=== PATIENT | male | born 1935 | race Two or more races ===

== ENCOUNTER 2019-03-30 11:31 | Observation (INO) | payer OTHER ==
--- NOTE | 2019-03-30 13:44 | PDOC ---
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 Hodge. Pt reports having a right calf ulcer progressively worsening over the last 1 year with associated pitting edema in the leg. Pt recently given Augmentin for wound, finished course 1 week ago and shows improvement (no longer draining pus). Pt denies associated symptoms including F/C/N/V, CP, SOB, abdominal pain, changes in bowel or bladder habits Past History - Past Medical History Allergies/Adverse Reactions: Allergies Allergy/AdvReac Type Severity Reaction Status Date / Time No Known Allergies Allergy Verified 03/30/19 12:17 Cancer: Yes (large cell lymphoma) COPD: No (smoking since he was 11yo.) - Psycho Social/Smoking Cessation Hx Smoking History: Current every day smoker Number of Cigarettes Smoked Daily: 1 Information on smoking cessation initiated: No Hx Alcohol Use: No Drug/Substance Use Hx: No Review of Systems - Review of Systems Constitutional: Yes: See HPI HEENTM: Yes: See HPI Respiratory: Yes: See HPI Cardiac (ROS): Yes: See HPI ABD/GI: Yes: See HPI : Yes: See HPI Musculoskeletal: Yes: See HPI Integumentary: Yes: See HPI Neurological: Yes: See HPI *Physical Exam - Vital Signs Last Vital Signs Temp Pulse Resp BP Pulse Ox 97.8 F 56 L 16 133/69 100 03/30/19 11:40 03/30/19 11:40 03/30/19 11:40 03/30/19 11:40 03/30/19 11:40 - Physical Exam General Appearance: Yes: Nourished, Appropriately Dressed. No: Apparent Distress HEENT: positive: EOMI Neck: positive: Supple. negative: Carotid bruit Respiratory/Chest: positive: Lungs Clear, Normal Breath Sounds. negative: Respiratory Distress Cardiovascular: positive: Regular Rhythm, Regular Rate, S1, S2. negative: Edema , JVD, Murmur Vascular Pulses: Dorsalis-Pedis (R): 4+, Doralis-Pedis (L): 4+ Gastrointestinal/Abdominal: positive: Flat, Soft. 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 Hodge. Pt reports having a right calf ulcer progressively worsening over the last 1 year with associated pitting edema in the leg. Pt recently given Augmentin for wound, finished course 1 week ago and shows improvement (no longer draining pus). Pt denies associated symptoms including F/C/N/V, CP, SOB, abdominal pain, changes in bowel or bladder habits Vitals WNL EKG sinus caity without signs of acute ischemia Trop of 0.18. Pt denies CP. Discussed case with Dr. Hodge, states pt will be admitted, will be cleared for Surgery by Cardiology and likely have the Port placed on Tuesday pt admitted to hospitalist Discharge - Discharge Information Problems reviewed: Yes Clinical Impression/Diagnosis: Admission for fitting of Port-A-Cath - Admission Yes - Follow up/Referral - Patient Discharge Instructions - Post Discharge Activity
--- NOTE | 2019-03-30 14:19 | PDOC ---
Documentation entered by Najma Aparicio SCRIBE, acting as scribe for Brock Keane MD. Brock Keane MD: This documentation has been prepared by the Markus hernandez Nirvannie, SCRIBE, under my direction and personally reviewed by me in its entirety. I confirm that the documentation accurately reflects all work, treatment, procedures, and medical decision making performed by me. Attending Attestation - Resident Resident Name: Azam Rios - ED Attending Attestation I have performed the following: I have examined & evaluated the patient, The case was reviewed & discussed with the resident, I agree w/resident's findings & plan, Exceptions are as noted - HPI HPI: 03/30/19 13:56 83y M with no known pmhx (no med fu) presents with a non healing ulcer, consistent with anaplastic large cell lymphoma - sent here by vascular for placement of chemo port. Patient denies any complaints including any pain, fevers, nausea, vomiting, chest pain, palpitations, lightheadedness. - Physicial Exam PE: 03/30/19 14:16 exam: general: no acute distress RLE: large mass on posterior LE of R leg inferior to calf without foul smelling discharge, not warm to ttouch, not erythemadous, Nontender to palpation, nonfluctuant. No signs of streaking or induration. - Medical Decision Making 03/30/19 14:19 will obtain preop labs NPO since 10pm will discuss with dr. coppola Heart Score/ECG Review - ECG Impressions Comment:: 03/30/19 18:04 Twelve-lead EKG was performed and reviewed by me. There is normal sinus rhythm with a Rate of 57 First-degree AV block Left anterior fascicular block No ST changes suggestive of acute ischemia
[2019-03-30 15:11] LABS: BASO % 0.6 % (0-2.0); EOS % 2.4 % (0-4.5); HEMATOCRIT 39.6 % (35.4-49); HEMOGLOBIN 13.1 GM/dL (11.7-16.9); LYMPH % 25.7 % (8-40); MCH 29.2 pg (25.7-33.7); MEAN CELL VOLUME 88.7 fl (80-96); MEAN PLT VOLUME 9.7 fl (7.5-11.1); NEUT % 59.3 % (42.8-82.8); PLATELET COUNT 267 K/MM3 (134-434); RBC 4.47 M/mm3 (4.00-5.60); RDW 14.5 % (11.9-15.9)
[2019-03-30 15:26] LABS: INR 1.05 (0.83-1.09); PROTHROMBIN TIME (PATIENT) 12.4 SEC (9.7-13.0)
[2019-03-30 15:45] LABS: ALBUMIN 3.2 g/dl (3.4-5.0); BILIRUBIN,TOTAL 0.4 mg/dL (0.2-1); BLOOD UREA NITROGEN 19.8 mg/dL (7-18); CALCIUM 9.5 mg/dL (8.5-10.1); CREATININE 0.7 mg/dL (0.55-1.3); POTASSIUM 4.7 mmol/L (3.5-5.1); TOT PROT 7.3 g/dl (6.4-8.2)
--- NOTE | 2019-03-30 17:45 | HP ---
CHIEF COMPLAINT: Port Placement, sent in by Dr. Hodge PCP: Pt. denies, per chart review Dr. Marta Hurst HISTORY OF PRESENT ILLNESS: Pt. is an 83 y.o. Tajik-Speaking M w/o PMHx. diam[place] presents for port placement to start chemotherapy. Pt. follows Dr. Narda Landry in the [place] as his oncologist. Pt. states he last saw a Physician 60 years ago prior to December when he had the biopsy of the RLE. Pt. completed a 5 day course of Augmentin for the wound. Per son at bedside Pt.'s wound expanded from 7-10 months ago when it was less than 1 cm. Pt. endorses some decreased PO intake over the last few weeks, hard stool (last BM yesterday) , some generealized weakness and intermittent numbness/tingling in the RLE, though not currently. Pt. states he was worked up by his PCP and Oncologist including vascualr flow to the RLE and it was negative for any problems. Pt. had PET scan of body which was only positive for R. groin lymphadenopathy and small b/l lymphadenoapthy. Pt. endorses 10lb. weight loss over the last 4 months but increased 4lbs recently. Pt. denies any chest pain, shortness of breath, abdominal pain, diarrhea, blood in the stool or urine, dysuria or nausea and vomiting. ER course was notable for: (1)CBC, CMP, Trop (2) (3) Recent Travel: No PAST MEDICAL HISTORY: RLE Anaplasti large cell lymphoma PAST SURGICAL HISTORY: Denies Social History: Smoking: Smoking since 13 years old, varying amounts peaked at 1PPD, now at 1 cigarette per day. Alcohol: Former heavy drinker, now abstains Drugs: Denies Allergies No Known Allergies Allergy (Verified 03/30/19 12:17) HOME MEDICATIONS: REVIEW OF SYSTEMS As above PHYSICAL EXAMINATION Vital Signs - 24 hr 03/30/19 11:40 Temperature 97.8 F Pulse Rate 56 L Respiratory 16 Rate Blood Pressure 133/69 O2 Sat by Pulse 100 Oximetry (%) GENERAL: Awake, alert, and fully oriented, in no acute distress. HEAD: Normal with no signs of trauma. EYES: Pupils equal, round and reactive to light, extraocular movements intact, sclera anicteric, conjunctiva clear. EARS, NOSE, THROAT: Ears normal, nares patent, oropharynx clear without exudates. Dry mucous membranes. NECK: Normal range of motion, supple without lymphadenopathy, JVD, or masses. LUNGS: Breath sounds equal, clear to auscultation bilaterally. No wheezes, and no crackles. No accessory muscle use. HEART: Regular rate and rhythm, normal S1 and S2 without murmur ABDOMEN: Soft, nontender, not distended, normoactive bowel sounds, no guarding, no rebound, no masses. No hepatomegaly or splenomegaly. MUSCULOSKELETAL: Normal range of motion at all joints. No bony deformities or tenderness. No CVA tenderness. UPPER EXTREMITIES: 2+ radial pulses, warm, well-perfused. No cyanosis. No clubbing. No peripheral edema. LOWER EXTREMITIES: 2+ dorsal pedal pulses, warm, well-perfused. No calf tenderness. No peripheral edema. R. fungating, malodorous 4cm x 6cm mass, mildly tender to direct palpation, dry, no overt purulence expressed. NEUROLOGICAL: Normal speech. Normal gait. No focal deficits PSYCHIATRIC: Cooperative. Good eye contact. Appropriate mood and affect. SKIN: Warm, dry Laboratory Results - last 24 hr 03/30/19 03/30/19 03/30/19 14:40 14:40 14:40 WBC 9.0 RBC 4.47 Hgb 13.1 Hct 39.6 MCV 88.7 MCH 29.2 MCHC 33.0 RDW 14.5 Plt Count 267 MPV 9.7 Absolute Neuts (auto) 5.4 Neutrophils % 59.3 Lymphocytes % 25.7 Monocytes % 12.0 H Eosinophils % 2.4 Basophils % 0.6 Nucleated RBC % 0 PT with INR 12.40 INR 1.05 Sodium 137 Potassium 4.7 Chloride 106 Carbon Dioxide 27 Anion Gap 5 L BUN 19.8 H Creatinine 0.7 Est GFR (CKD-EPI)AfAm 101.15 Est GFR (CKD-EPI)NonAf 87.27 Random Glucose 84 Calcium 9.5 Total Bilirubin 0.4 AST 44 H ALT 27 Alkaline Phosphatase 60 Creatine Kinase 302 Creatine Kinase Index 4.9 CK-MB (CK-2) 15.0 H Troponin I 0.18 H Total Protein 7.3 Albumin 3.2 L Blood Type Antibody Screen 03/30/19 14:40 WBC RBC Hgb Hct MCV MCH MCHC RDW Plt Count MPV Absolute Neuts (auto) Neutrophils % Lymphocytes % Monocytes % Eosinophils % Basophils % Nucleated RBC % PT with INR INR Sodium Potassium Chloride Carbon Dioxide Anion Gap BUN Creatinine Est GFR (CKD-EPI)AfAm Est GFR (CKD-EPI)NonAf Random Glucose Calcium Total Bilirubin AST ALT Alkaline Phosphatase Creatine Kinase Creatine Kinase Index CK-MB (CK-2) Troponin I Total Protein Albumin Blood Type O POSITIVE Antibody Screen Negative ASSESSMENT/PLAN: Pt. is an 83 y.o. M w/o PMHx. whjo presents for port placement to start chemotherapy. Found to have elevated Troponins. #R/o ACS Asymptomatic Trop 0.18 EKG shows 1st degree AV block, bradycardia to 57 f/u Echo, rpt. Trop and EKG #Anaplastic Large Cell Lymphoma F/u Dr. Hodge for Port placement #FEN NS @ 100 for 2 bags moinitor electrolytes and replete as needed Regular diet Visit type - Emergency Visit Emergency Visit: Yes ED Registration Date: 03/30/19 Care time: The patient presented to the Emergency Department on the above date and was hospitalized for further evaluation of their emergent condition. - New Patient This patient is new to me today: Yes Date on this admission: 03/30/19 - Critical Care Critical Care patient: No ATTENDING PHYSICIAN STATEMENT I saw and evaluated the patient. I reviewed the resident's note and discussed the case with the resident. I agree with the resident's findings and plan as documented. SUBJECTIVE: OBJECTIVE: ASSESSMENT AND PLAN:
--- NOTE | 2019-03-30 18:18 | PN ---
Teaching Attending Note Name of Resident: Luke Shea ATTENDING PHYSICIAN STATEMENT I saw and evaluated the patient. I reviewed the resident's note and discussed the case with the resident. I agree with the resident's findings and plan as documented. Seen and examined; please see resident note for further historical information. I personally verified all gary historical information and exam findings. Personally interpreted all imaging and diagnostics and reviewed appropriate consults. I reviewed all labs and vital signs as per resident note and EMR as documented. I agree with the above assessment and plan unless supplemented by myself in the following. Patient denies any chest pain shortness of breath nausea vomiting abdominal pain. He denies any prior cardiac history history of echocardiogram, cardiac catheterization, stress testing, echocardiogram, etc. etc. The patient does not follow regularly with and says is been approximately 40 years since he is even had a medical encounter. No recent antibiotics or admissions. He has scab wounds on his right lower extremity that evolved into fungating masses that are scabbed over that are consistent with the diagnosis which prompted him to seek medical attention with outpatient oncology service and leading to his diagnosis. Past medical, surgical, social, family history as per resident 10 item review of systems completed and is negative aside from as discussed in the subjective data in my own/the resident documentation. VS, labs, imaging reviewed NAD, AAO, resting comfortably in bed. 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 He is asymptomatic without EKG changes. He presented for elective port placement with Dr. Hodge for his anaplastic large B-cell lymphoma
[2019-03-30] MEDS ORDERED: ENOXAPARIN NA (PORCINE) 40 MG/0.4 ML DISP.SYRIN SQ ONE (18:23)
[2019-03-30] MEDS: SODIUM CHLORIDE 1,000 ML IV SCH (18:47)
[2019-03-30] MEDS: ENOXAPARIN NA (PORCINE) 40 MG/0.4 ML DISP.SYRIN SQ SCH (18:47)
[2019-03-30 23:46] VITALS: BMI 19.8
[2019-03-31 06:34] LABS: HEMATOCRIT 34.1 % (35.4-49); HEMOGLOBIN 11.3 GM/dL (11.7-16.9); MCH 29.3 pg (25.7-33.7); MCHC 33.3 g/dl (32.0-35.9); MEAN PLT VOLUME 10.1 fl (7.5-11.1); PLATELET COUNT 237 K/MM3 (134-434); RBC 3.88 M/mm3 (4.00-5.60); RDW 14.6 % (11.9-15.9); WHITE BLOOD COUNT 6.1 K/mm3 (4.0-10.0)
[2019-03-31 06:45] LABS: INR 1.11 (0.83-1.09); PROTHROMBIN TIME (PATIENT) 13.1 SEC (9.7-13.0)
[2019-03-31 07:08] LABS: CALCIUM 8.9 mg/dL (8.5-10.1); CREATININE 0.7 mg/dL (0.55-1.3); MAGNESIUM 1.9 mg/dL (1.8-2.4); POTASSIUM 4.7 mmol/L (3.5-5.1)
--- NOTE | 2019-03-31 07:37 | PN ---
Physical Exam: SUBJECTIVE: Patient seen and examined OBJECTIVE: Vital Signs Period Temp Pulse Resp BP Sys/Foreman Pulse Ox Last 24 Hr 97.5 F-98.1 F 56-63 16-18 115-133/60-74 99-100 GENERAL: The patient is awake, alert, and fully oriented, in no acute distress. HEAD: Normal with no signs of trauma. EYES: PERRL, extraocular movements intact, sclera anicteric, conjunctiva clear. No ptosis. ENT: Ears normal, nares patent, oropharynx clear without exudates, moist mucous membranes. NECK: Trachea midline, full range of motion, supple. LUNGS: Breath sounds equal, clear to auscultation bilaterally, no wheezes, no crackles, no accessory muscle use. HEART: Regular rate and rhythm, S1, S2 without murmur, rub or gallop. ABDOMEN: Soft, nontender, nondistended, normoactive bowel sounds, no guarding, no rebound, no hepatosplenomegaly, no masses. EXTREMITIES: 2+ pulses, warm, well-perfused, no edema. NEUROLOGICAL: Cranial nerves II through XII grossly intact. Normal speech, gait not observed. PSYCH: Normal mood, normal affect. SKIN: Warm, dry, normal turgor, no rashes or lesions noted Laboratory Results - last 24 hr 03/30/19 03/30/19 03/30/19 14:40 14:40 14:40 WBC 9.0 RBC 4.47 Hgb 13.1 Hct 39.6 MCV 88.7 MCH 29.2 MCHC 33.0 RDW 14.5 Plt Count 267 MPV 9.7 Absolute Neuts (auto) 5.4 Neutrophils % 59.3 Lymphocytes % 25.7 Monocytes % 12.0 H Eosinophils % 2.4 Basophils % 0.6 Nucleated RBC % 0 PT with INR 12.40 INR 1.05 Sodium 137 Potassium 4.7 Chloride 106 Carbon Dioxide 27 Anion Gap 5 L BUN 19.8 H Creatinine 0.7 Est GFR (CKD-EPI)AfAm 101.15 Est GFR (CKD-EPI)NonAf 87.27 Random Glucose 84 Calcium 9.5 Phosphorus Magnesium Total Bilirubin 0.4 AST 44 H ALT 27 Alkaline Phosphatase 60 Creatine Kinase 302 Creatine Kinase Index 4.9 CK-MB (CK-2) 15.0 H Troponin I 0.18 H Total Protein 7.3 Albumin 3.2 L Blood Type Antibody Screen 02/07/20 02/07/20 02/08/20 14:40 18:35 06:05 WBC 6.1 RBC 3.88 L Hgb 11.3 L Hct 34.1 L MCV 88.0 MCH 29.3 MCHC 33.3 RDW 14.6 Plt Count 237 MPV 10.1 Absolute Neuts (auto) Neutrophils % Lymphocytes % Monocytes % Eosinophils % Basophils % Nucleated RBC % PT with INR INR Sodium Potassium Chloride Carbon Dioxide Anion Gap BUN Creatinine Est GFR (CKD-EPI)AfAm Est GFR (CKD-EPI)NonAf Random Glucose Calcium Phosphorus Magnesium Total Bilirubin AST ALT Alkaline Phosphatase Creatine Kinase Creatine Kinase Index CK-MB (CK-2) Troponin I 0.15 H Total Protein Albumin Blood Type O POSITIVE Antibody Screen Negative 03/31/19 03/31/19 06:05 06:05 WBC RBC Hgb Hct MCV MCH MCHC RDW Plt Count MPV Absolute Neuts (auto) Neutrophils % Lymphocytes % Monocytes % Eosinophils % Basophils % Nucleated RBC % PT with INR 13.10 H INR 1.11 H Sodium 139 Potassium 4.7 Chloride 107 Carbon Dioxide 27 Anion Gap 4 L BUN 20.0 H Creatinine 0.7 Est GFR (CKD-EPI)AfAm 101.15 Est GFR (CKD-EPI)NonAf 87.27 Random Glucose 80 Calcium 8.9 Phosphorus 4.0 Magnesium 1.9 Total Bilirubin AST ALT Alkaline Phosphatase Creatine Kinase Creatine Kinase Index CK-MB (CK-2) Troponin I Total Protein Albumin Blood Type Antibody Screen Active Medications Generic Name Dose Route Start Last Admin Trade Name Freq PRN Reason Stop Dose Admin Enoxaparin Sodium 40 mg 03/30/19 18:00 03/30/19 18:47 Lovenox - SQ 40 mg DAILY ODESSA Administration Sodium Chloride 1,000 mls @ 83 mls/hr 03/30/19 18:00 03/30/19 18:47 Normal Saline - IV 04/01/19 06:03 83 mls/hr ASDIR ODESSA Administration ASSESSMENT/PLAN: Remains stable. Elucidating date of port placement. Holding off on ASA given potential procedure; trops downtrended. Will defer further CV management to their service. Adding on lipids, A1c, TSH. No further chest pain. No elements on telemetry. Pending cardiology consult Problems include: Lymphoma Type II end STEMI, troponin trending down, pain cardiology clearance. Holding aspirin given potential procedure. Check A1c, lipids, TSH. Counseled on lifestyle modifications. DVT prophylaxis being switched from enoxaparin to heparin given potential procedure, discontinuing IV fluids as there is no indication. As no stress tests on weekend and not on schedule can feed Full Code Visit type - Emergency Visit Emergency Visit: No - New Patient This patient is new to me today: No - Critical Care Critical Care patient: No
[2019-03-31] MEDS: ENOXAPARIN NA (PORCINE) 40 MG/0.4 ML DISP.SYRIN SQ SCH (09:06)
[2019-03-31] MEDS: SODIUM CHLORIDE 1,000 ML IV SCH (09:08)
--- NOTE | 2019-03-31 14:34 | EKG ---
Test Reason : Blood Pressure : / mmHG Vent. Rate : 057 BPM Atrial Rate : 057 BPM P-R Int : 238 ms QRS Dur : 086 ms QT Int : 398 ms P-R-T Axes : 082 -55 026 degrees QTc Int : 387 ms SINUS BRADYCARDIA WITH 1ST DEGREE A-V BLOCK LEFT ANTERIOR FASCICULAR BLOCK ABNORMAL ECG Confirmed by MD FELICIA, OPAL ([id number]) on 03/31/2019 2:33:44 PM Referred By: Confirmed By:OPAL DUARTE MD
[2019-04-01 07:39] LABS: BASO % 0.2 % (0-2.0); HEMATOCRIT 34.3 % (35.4-49); HEMOGLOBIN 11.3 GM/dL (11.7-16.9); MCH 29.3 pg (25.7-33.7); MEAN CELL VOLUME 88.8 fl (80-96); MEAN PLT VOLUME 9.8 fl (7.5-11.1); MONO % 9.9 % (3.8-10.2); NEUT % 64.9 % (42.8-82.8); PLATELET COUNT 245 K/MM3 (134-434); RBC 3.87 M/mm3 (4.00-5.60); RDW 14.3 % (11.9-15.9); WHITE BLOOD COUNT 6.8 K/mm3 (4.0-10.0)
[2019-04-01 07:47] LABS: INR 1.06 (0.83-1.09); PROTHROMBIN TIME (PATIENT) 12.5 SEC (9.7-13.0)
[2019-04-01 07:59] LABS: BLOOD UREA NITROGEN 16.8 mg/dL (7-18); CREATININE 0.7 mg/dL (0.55-1.3); POTASSIUM 4.1 mmol/L (3.5-5.1)
[2019-04-01] MEDS: ENOXAPARIN NA (PORCINE) 40 MG/0.4 ML DISP.SYRIN SQ SCH (09:39)
[2019-04-01] MEDS ORDERED: CYCLOBENZAPRINE HCL 10 MG TABLET (FP) PO ONE (10:55)
--- NOTE | 2019-04-01 14:17 | EKG ---
Test Reason : Blood Pressure : / mmHG Vent. Rate : 054 BPM Atrial Rate : 054 BPM P-R Int : 246 ms QRS Dur : 086 ms QT Int : 420 ms P-R-T Axes : 083 -54 018 degrees QTc Int : 398 ms SINUS BRADYCARDIA WITH 1ST DEGREE A-V BLOCK LEFT ANTERIOR FASCICULAR BLOCK ABNORMAL ECG Confirmed by MD FELICIA, OPAL ([id number]) on 04/01/2019 2:16:54 PM Referred By: Confirmed By:OPAL DUARTE MD
--- NOTE | 2019-04-01 18:45 | PN ---
Physical Exam: SUBJECTIVE: Patient seen and examined OBJECTIVE: Vital Signs Period Temp Pulse Resp BP Sys/Foreman Pulse Ox Last 24 Hr 97.9 F-98.4 F 55-66 16-20 117-137/56-67 98-99 GENERAL: The patient is awake, alert, and fully oriented, in no acute distress. EYES: PERRL, extraocular movements intact, sclera anicteric, conjunctiva clear. No ptosis. ENT: oropharynx clear without exudates, moist mucous membranes. LUNGS: Breath sounds equal, clear to auscultation bilaterally, no wheezes, no crackles, HEART: Regular rate and rhythm, S1, S2 without murmur, rub or gallop. ABDOMEN: Soft, nontender, nondistended, normoactive bowel sounds, no guarding EXTREMITIES: 2+ pulses, warm, well-perfused, no edema. RLE irregular mass, foul smelling. NEUROLOGICAL: Cranial nerves II through XII grossly intact. SKIN: Warm, dry, normal turgor, no rashes or lesions noted Laboratory Results - last 24 hr 04/01/19 04/01/19 04/01/19 06:20 06:20 06:20 WBC 6.8 RBC 3.87 L Hgb 11.3 L Hct 34.3 L MCV 88.8 MCH 29.3 MCHC 33.0 RDW 14.3 Plt Count 245 MPV 9.8 Absolute Neuts (auto) 4.4 Neutrophils % 64.9 Lymphocytes % 23.0 Monocytes % 9.9 Eosinophils % 2.0 Basophils % 0.2 Nucleated RBC % 0 PT with INR 12.50 INR 1.06 Sodium 138 Potassium 4.1 Chloride 108 H Carbon Dioxide 28 Anion Gap 3 L BUN 16.8 Creatinine 0.7 Est GFR (CKD-EPI)AfAm 101.15 Est GFR (CKD-EPI)NonAf 87.27 Random Glucose 76 Calcium 9.0 Active Medications Current Medications Heparin Sodium (Porcine) (Heparin -) 5,000 unit SQ TID [facility] ASSESSMENT/PLAN: 83 y/o M w/out PMHx presents for port placement to start chemotherapy for a right LE dysplastic mass found to be is also found to have elevated Troponins admitted for acs r/o #Troponemia R/o ACS Asymptomatic Trop 0.18>.15 EKG shows 1st degree AV block, bradycardia to 57 f/u Echo, rpt. Trop and EKG #Anaplastic Large Cell Lymphoma PET scan of body which was only positive for R. groin lymphadenopathy and small b/l lymphadenoapthy F/u Dr. Hodge for Port placement, procedure likely tomorrow Duplex arterial and vascular normal #DVT ppx Heparin TID #FEN NS @ 100 for 2 bags monitor electrolytes and replete as needed NPO after midnight Dispo: f/u with vascular, likely surgery tomorrow, NPO for tomorrow Visit type - Emergency Visit Emergency Visit: Yes ED Registration Date: 03/30/19 Care time: The patient presented to the Emergency Department on the above date and was hospitalized for further evaluation of their emergent condition. - New Patient This patient is new to me today: Yes Date on this admission: 04/01/19 - Critical Care Critical Care patient: No - Discharge Referral Referred to [facility] Med P.C.: No ATTENDING PHYSICIAN STATEMENT I saw and evaluated the patient. I reviewed the resident's note and discussed the case with the resident. I agree with the resident's findings and plan as documented. SUBJECTIVE: OBJECTIVE: ASSESSMENT AND PLAN:
--- NOTE | 2019-04-01 18:48 | CON.CARD ---
Consult Consult Specialty:: cardiology Reason for Consultation:: port placement for chemotherapy; unclear medical hx - History of Present Illness Chief Complaint: Pt A&O; asymptomatic. Pt's son and multiple family members are present. History of Present Illness: 83yr old man (sarah. 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 Pt denies any other medical hx; he is on no medications at home. + Cigarettes for many years, up to 1 ppd. Patient denies any complaints including any pain, fevers, nausea, vomiting, chest pain, palpitations, lightheadedness. 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 Loss Eyes: reports: No Symptoms HENT: reports: No Symptoms Neck: reports: No Symptoms Cardiovascular: reports: No Symptoms Respiratory: reports: No Symptoms Gastrointestinal: reports: No Symptoms Genitourinary: reports: No Symptoms Breasts: reports: No Symptoms Reported Musculoskeletal: reports: Muscle Weakness Integumentary: reports: No Symptoms Neurological: reports: Weakness Endocrine: reports: No Symptoms Hematology/Lymphatic: reports: No Symptoms Psychiatric: reports: No Symptoms - Risk Factors Known Risk Factors: Yes: Age, Gender, Smoking, Other (lymphoma) Vital Signs: Vital Signs Temperature 98.3 F 04/01/19 18:00 Pulse Rate 62 04/01/19 18:00 Respiratory Rate 18 04/01/19 18:00 Blood Pressure 115/55 L 04/01/19 18:00 O2 Sat by Pulse Oximetry (%) 99 04/01/19 09:43 Constitutional: Yes: No Distress, Thin Eyes: Yes: WNL HENT: Yes: WNL Neck: Yes: WNL Respiratory: Yes: WNL Gastrointestinal: Yes: WNL Renal/: Yes: WNL Cardiovascular: Yes: Bradycardia JVD: No Carotid Bruit: No PMI: Non-Displaced Heart Sounds: Yes: S1 (split), S2 Murmur: Yes: Systolic Murmur, Grade 2 Musculoskeletal: Yes: Muscle Weakness Extremities: Yes: WNL, Cool Edema: No Peripheral Pulses WNL: Yes Integumentary: Yes: WNL Neurological: Yes: Alert, Oriented, Weakness Psychiatric: Yes: WNL - Other Data Labs, Other Data: CBC, BMP 04/01/19 06:20 04/01/19 06:20 INR, PTT INR 1.06 (0.83-1.09) 04/01/19 06:20 Abnormal Lab Results 04/01/19 04/01/19 06:20 06:20 RBC 3.87 L Hgb 11.3 L Hct 34.3 L Chloride 108 H Anion Gap 3 L Imaging - Results Chest X-ray: Image Reviewed Ultrasound: Report Reviewed EKG: Image Reviewed Problem List - Problems (1) Lymphoma Assessment/Plan: f/u with oncologist. ECHO (baseline LVEF prior to beginning chemotherapy). Code(s): C85.90 - NON-HODGKIN LYMPHOMA, UNSPECIFIED, UNSPECIFIED SITE (2) Smokes cigarettes Code(s): F17.210 - NICOTINE DEPENDENCE, CIGARETTES, UNCOMPLICATED (3) Admission for fitting of Port-A-Cath Code(s): Z45.2 - ENCOUNTER FOR ADJUSTMENT AND MANAGEMENT OF VAD (4) Anemia Code(s): D64.9 - ANEMIA, UNSPECIFIED
[2019-04-02 07:55] LABS: HEMOGLOBIN 11.3 GM/dL (11.7-16.9); MCH 29.2 pg (25.7-33.7); MCHC 33.3 g/dl (32.0-35.9); MEAN CELL VOLUME 87.7 fl (80-96); MEAN PLT VOLUME 10.1 fl (7.5-11.1); PLATELET COUNT 239 K/MM3 (134-434); RBC 3.88 M/mm3 (4.00-5.60); RDW 14.6 % (11.9-15.9); WHITE BLOOD COUNT 6.1 K/mm3 (4.0-10.0)
[2019-04-02 08:05] LABS: ALBUMIN 2.8 g/dl (3.4-5.0); BILIRUBIN,TOTAL 0.2 mg/dL (0.2-1); BLOOD UREA NITROGEN 16.5 mg/dL (7-18); CREATININE 0.7 mg/dL (0.55-1.3); POTASSIUM 4.5 mmol/L (3.5-5.1); TOT PROT 6.2 g/dl (6.4-8.2)
--- NOTE | 2019-04-02 08:39 | PN ---
Teaching Attending Note Name of Resident: Deion Rodríguez ATTENDING PHYSICIAN STATEMENT I saw and evaluated the patient. I reviewed the resident's note and discussed the case with the resident. I agree with the resident's findings and plan as documented. SUBJECTIVE: No new complaints, pending vascular input OBJECTIVE: NAD AAO resting in bed LE ulcers unchanged HR wnl, +s1/2 NT ND +BS ASSESSMENT AND PLAN: Remains stable. Elucidating date of port placement. Holding off on ASA given potential procedure; trops downtrended. Will defer further CV management to their service. Adding on lipids, A1c, TSH. No further chest pain. No elements on telemetry. Pending cardiology consult Problems include: Lymphoma Type II NSTEMI, troponin trending down, pain cardiology clearance. Holding aspirin given potential procedure. Check A1c, lipids, TSH. Counseled on lifestyle modifications. Pending port placement Full Code All questions answered
--- NOTE | 2019-04-02 08:39 | PN ---
Teaching Attending Note Name of Resident: Anuj Cobos ATTENDING PHYSICIAN STATEMENT I saw and evaluated the patient. I reviewed the resident's note and discussed the case with the resident. I agree with the resident's findings and plan as documented. Seen and examined; please see resident note for further historical information. I personally verified all gary historical information and exam findings. Personally interpreted all imaging and diagnostics and reviewed appropriate consults. I reviewed all labs and vital signs as per resident note and EMR as documented. I agree with the above assessment and plan unless supplemented by myself in the following. Patient has no new complaints of worsening pain, chest pain, shortness of breath , etc. etc. He will likely go to the OR tomorrow and can probably be discharged after surgery. Discussed with cardiology. 10 item review of systems completed and is negative aside from as discussed in the subjective data in my own/the resident documentation. VS, labs, imaging reviewed NAD, AAO, resting comfortably in bed. RRR s1/2 no mgr Normal muscle tone, moves all 5 extremities with normal apparent strength Neck is supple, trachea midline, no payton LN Lungs CTAB with sym expansion NT ND +BS no payton organomegaly CN2-12 wnl; no FND NC AT EOMI PERRLA Normal mood, appropriate behavior, euthymic affect No skin breakdown or rashes noted Leg wounds remain stable with no signs of acute infection. Assessment and plan: Remains stable. Elucidating date of port placement. Holding off on ASA given potential procedure; trops downtrended. Will defer further CV management to their service. Adding on lipids, A1c, TSH. No further chest pain. No elements on telemetry. Pending cardiology consult Problems include: Lymphoma Type II end STEMI, troponin trending down, pain cardiology clearance. Holding aspirin given potential procedure. Check A1c, lipids, TSH. Counseled on lifestyle modifications. Pending port placement Likely OR tomorrow Full Code All questions answered.
--- NOTE | 2019-04-02 08:46 | PN ---
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 Pt denies any other medical hx; he is on no medications at home. + Cigarettes for many years, up to 1 ppd. Patient denies any complaints including any pain, fevers, nausea, vomiting, chest pain, palpitations, lightheadedness. - Current Medication List Current Medications: Active Medications Heparin Sodium (Porcine) (Heparin -) 5,000 unit SQ TID ODESSA - Objective Vital Signs: Vital Signs Temperature 97.7 F 04/02/19 07:40 Pulse Rate 53 L 04/02/19 07:40 Respiratory Rate 18 04/02/19 07:40 Blood Pressure 123/75 04/02/19 07:40 O2 Sat by Pulse Oximetry (%) 99 04/02/19 01:00 Eyes: Yes: WNL, Conjunctiva Clear, EOM Intact HENT: Yes: WNL, Atraumatic, Normocephalic Neck: Yes: WNL, Supple, Trachea Midline Cardiovascular: Yes: WNL, Regular Rate and Rhythm Respiratory: Yes: WNL, Regular, CTA Bilaterally Gastrointestinal: Yes: WNL, Normal Bowel Sounds Genitourinary: Yes: WNL Musculoskeletal: Yes: WNL Extremities: Yes: WNL Edema: No Integumentary: Yes: WNL Neurological: Yes: WNL, Alert, Oriented ...Motor Strength: WNL Psychiatric: Yes: WNL Labs: CBC, BMP 04/02/19 06:25 04/02/19 06:25 INR, PTT INR 1.06 (0.83-1.09) 04/01/19 06:20 Assessment/Plan - Problems (1) Lymphoma Assessment/Plan: f/u with oncologist. ECHO (baseline LVEF prior to beginning chemotherapy). Code(s): C85.90 - NON-HODGKIN LYMPHOMA, UNSPECIFIED, UNSPECIFIED SITE (2) Smokes cigarettes Code(s): F17.210 - NICOTINE DEPENDENCE, CIGARETTES, UNCOMPLICATED (3) Admission for fitting of Port-A-Cath Code(s): Z45.2 - ENCOUNTER FOR ADJUSTMENT AND MANAGEMENT OF VAD (4) Anemia Code(s): D64.9 - ANEMIA, UNSPECIFIED Positive TNIS EKG NSR LAFB Will repeat TNIS Will need a stress test for risk stratification prior to discharge.
--- NOTE | 2019-04-02 10:12 | ECHO ---
Name: CHANRASHEED Exam:Adult Echocardiogram Study Date: 04/02/2019 09:22 AM Age: 83 yrs Reason For Study: troponinemia Height: 68 in Weight: 132 lb BSA: 1.7 m2 MMode/2D Measurements & Calculations IVSd: 1.1 cm Ao root diam: 3.6 cm LVIDd: 5.2 cm LA dimension: 4.2 cm LVIDs: 3.5 cm ACS: 2.4 cm LVPWd: 1.1 cm EDV(Teich): 131.9 ml LVOT diam: 2.0 cm ESV(Teich): 52.4 ml LAV (MOD-bp): 76.0 ml TAPSE: 2.0 cm RV S Mike: 13.0 cm/sec Doppler Measurements & Calculations MV E max mike: 67.1 cm/sec Ao V2 max: 164.9 cm/sec MV A max mike: 58.7 cm/sec Ao max P.0 mmHg MV E/A: 1.1 Ao V2 mean: 93.1 cm/sec MV dec time: 0.24 sec Ao mean P.3 mmHg Ao V2 VTI: 28.2 cm GAMA(I,D): 2.3 cm2 GAMA(V,D): 2.1 cm2 LV V1 max P.8 mmHg MR max mike: 463.0 cm/sec LV V1 mean P.9 mmHg MR max P.9 mmHg LV V1 max: 109.1 cm/sec LV V1 mean: 61.6 cm/sec LV V1 VTI: 20.2 cm SV(LVOT): 63.4 ml TR max mike: 219.0 cm/sec TR max P.2 mmHg PA V2 max: 108.6 cm/sec PI end-d mike: 93.7 cm/sec PA max P.7 mmHg Med Peak E' Mike: 5.5 cm/sec Pulm Sys Mike: 48.4 cm/sec Med E/e': 12.3 Pulm Foreman Mike: 63.2 cm/sec Lat Peak E' Mike: 8.4 cm/sec Pulm S/D: 0.77 Lat E/e': 8.0 Procedure Study Quality: Fair. Left Ventricle The left ventricle is normal in size. There is borderline concentric left ventricular hypertrophy. Ej ection Fraction = 55%. The left ventricular ejection fraction is normal. Diastolic dysfunction, Grade II (pseudonormalization pattern). Right Ventricle The right ventricle is normal size. The right ventricular systolic function is normal. Atria The left atrium is mildly dilated. The right atrium is borderline dilated. Mitral Valve The mitral valve is grossly normal. There is mild mitral regurgitation. Tricuspid Valve The tricuspid valve is not well visualized, but is grossly normal. There is mild tricuspid regurgitat ion. Right ventricular systolic pressure is normal. Aortic Valve The aortic valve is trileaflet. There is mild aortic valve thickening. Trace aortic regurgitation. Pulmonic Valve The pulmonic valve is not well seen, but is grossly normal. Trace to mild pulmonic valvular regurgita tion. Great Vessels The aortic root is normal size. Pericardium/Pleura There is no pericardial effusion. Interpretation Summary LV: Pauline size, borderline LVH,normal contractility and systolic function, EF 55%, diastolic dysfunct ion grade II RV: Normal LA: Mildly dilated Trace AR Mild TR, normal right ventricular systoic pressure. Elli Harris 04/02/2019 10:11 AM
--- NOTE | 2019-04-02 10:50 | PN ---
Progress Note (short form) - Note Progress Note: Vascular Surgery Pt for port placement today for intiiation of chemotherapy. Pt can be DC home after port placement. I will speak to oncology to start treatment. Erick Hodge DO
[2019-04-02] MEDS ORDERED: LIDOCAINE HCL 1%, 10 MG/ML (20ML VIAL) ONE (13:19)
[2019-04-02] MEDS ORDERED: PROPOFOL 20 ML ONE (14:31)
[2019-04-02] MEDS ORDERED: ceFAZolin SODIUM 1 GM VIAL ONE (14:56)
[2019-04-02] MEDS ORDERED: ceFAZolin SODIUM 1 GM VIAL IVPB ONE (14:58)
[2019-04-02] MEDS ORDERED: HEPARIN NA (PORCINE) 1,000 UNITS/ML 10ML M-D VIAL SQ ONE ×2 (15:18)
[2019-04-02] MEDS ORDERED: LIDOCAINE HCL 1%, 10 MG/ML (20ML VIAL) INF ONE ×2 (15:25)
--- NOTE | 2019-04-02 15:41 | OP ---
Operative Note - Note: Operative Date: 04/02/19 Pre-Operative Diagnosis: large cell cancer Operation: Insertion of portacath Post-Operative Diagnosis: Same as Pre-op Surgeon: Erick Hodge Anesthesia: Fractional Estimated Blood Loss (mls): 30 Operative Report Dictated: Yes
--- NOTE | 2019-04-02 16:19 | DS ---
Physical Exam: SUBJECTIVE: Patient seen and examined OBJECTIVE: Vital Signs Period Temp Pulse Resp BP Sys/Foreman Pulse Ox Last 24 Hr 97.5 F-98.6 F 13-67 14-62 99-124/49-75 98-100 PHYSICAL EXAM GENERAL: The patient is awake, alert, and fully oriented, in no acute distress. EYES: PERRL, extraocular movements intact, sclera anicteric, conjunctiva clear. No ptosis. ENT: oropharynx clear without exudates, moist mucous membranes. LUNGS: Breath sounds equal, clear to auscultation bilaterally, no wheezes, no crackles, HEART: Regular rate and rhythm, S1, S2 without murmur, rub or gallop. ABDOMEN: Soft, nontender, nondistended, normoactive bowel sounds, no guarding EXTREMITIES: 2+ pulses, warm, well-perfused, no edema. RLE irregular mass, foul smelling. NEUROLOGICAL: Cranial nerves II through XII grossly intact. SKIN: Warm, dry, normal turgor, no rashes or lesions noted LABS Laboratory Results - last 24 hr 04/02/19 04/02/19 06:25 06:25 WBC 6.1 RBC 3.88 L Hgb 11.3 L Hct 34.0 L MCV 87.7 MCH 29.2 MCHC 33.3 RDW 14.6 Plt Count 239 MPV 10.1 Sodium 138 Potassium 4.5 Chloride 107 Carbon Dioxide 28 Anion Gap 4 L BUN 16.5 Creatinine 0.7 Est GFR (CKD-EPI)AfAm 101.15 Est GFR (CKD-EPI)NonAf 87.27 Random Glucose 85 Calcium 9.0 Total Bilirubin 0.2 AST 30 ALT 25 Alkaline Phosphatase 51 Total Protein 6.2 L Albumin 2.8 L Current Medications Heparin Sodium (Porcine) (Heparin -) 5,000 unit SQ TID [facility] Home Medications Medication Instructions Recorded Aspirin [Ecotrin] 81 mg PO DAILY #30 tablet. 04/02/19 HOSPITAL COURSE: Date of Admission:03/30/19 83 y/o M w/out PMHx presents for port placement to start chemotherapy for a right LE dysplastic mass found to be is also found to have elevated Troponins admitted for acs r/o. Pt's trops were elevated on admission but then trended now. Trop 0.18>.15. Ekg showed 1st degree AV block, bradycardia to 57. ECHO was found to be normal. Pt needed a chemoport for his chemotherpay, hence Dr. Hodge was consulted and chemoport was inserted. Outpt PET scan of body which was only positive for R. groin lymphadenopathy and small b/l lymphadenoapthy. After chemo port insertion, pt was stable for discharged and sent home with referral to Dr. Hayden office and his oncologist office. EKG shows 1st degree AV block, bradycardia to 57 Echo- no changes, normal Duplex arterial and vascular normal Outpt PET scan of body which was only positive for R. groin lymphadenopathy and small b/l lymphadenoapthy Date of Discharge: 04/02/19 Minutes to complete discharge: 40 Discharge Summary Problems reviewed: Yes Reason For Visit: ADMISSION FOR FITTING OF PORT A CATH Current Active Problems Admission for fitting of Port-A-Cath (Chronic) Anemia (Chronic) Lymphoma (Chronic) Smokes cigarettes (Chronic) Condition: Improved - Instructions Diet, Activity, Other Instructions: You were admitted to the hospital for chemotherapy port placement and abnormal lab values. We found that your heart enzymes were elevated. While you were in the hospital, we evaluated you with lab work, blood work, imaging including imaging of your legs, x rays of your chest and echocardiography of your heart. We found that your symptoms resolved on its own. While you were here, we surgical inserted a chemotherapy port for you to receive chemotherapy. Please take all your medications as prescribed Please follow up with your oncologist Dr. Narda Landry within 1 week. If you do not have a oncologist, we have provided one for you, Brock Mendoza Please follow up with your acid changer or the one we have provided for you, Dr. Rios, within 1 week. Return to the emergency room, if you experience worsening of your symptoms, chest pain, abdominal pain or any worsening of your condition. Referrals: Aydin Rios MD [Staff Physician] - 1 Week Erick Hodge DO [Staff Physician] - 1 Week Brock Jimenez MD [Staff Physician] - 1 Week Disposition: HOME - Home Medications Comprehensive Discharge Medication List: Ambulatory Orders Aspirin [Ecotrin] 81 mg PO DAILY #30 tablet. 04/02/19 This patient is new to me today: Yes Date on this admission: 04/02/19 Emergency Visit: Yes ED Registration Date: 03/30/19 Care time: The patient presented to the Emergency Department on the above date and was hospitalized for further evaluation of their emergent condition. Critical Care patient: No - Discharge Referral Referred to [facility] No ATTENDING PHYSICIAN STATEMENT I saw and evaluated the patient. I reviewed the resident's note and discussed the case with the resident. I agree with the resident's findings and plan as documented. SUBJECTIVE: OBJECTIVE: ASSESSMENT AND PLAN:
[2019-04-02] MEDS ORDERED: HEPARIN NA (PORCINE) 5,000 UNITS/ML 1ML VIAL SQ SCH ×2 (18:00)
[2019-04-02 18:39] VITALS: BP 141/66; PULSE 52; TEMP 97.2
--- NOTE | 2019-04-05 00:14 | OP ---
DATE OF OPERATION: 04/02/2019 PREOPERATIVE DIAGNOSIS: Large-cell carcinoma. POSTOPERATIVE DIAGNOSIS: Large-cell carcinoma. PROCEDURE: Insertion of Port-A-Cath. SURGEON: Erick Ivory DO ANESTHESIA: Fractional. BLOOD LOSS: 20 mL. 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 He needs a port placement for chemotherapy initiation. Patient was consented for the procedure, understanding all risks, benefits, and alternatives. DESCRIPTION OF PROCEDURE: Patient was taken to the operating room. Once in the operating theater, he was placed on the operating table in the supine manner. The area of the right chest and neck were prepped and draped in the sterile surgical manner. Under ultrasound guidance, I was able to visualize the right internal jugular vein and 10 mL of lidocaine 1% was injected there. I then took a micropuncture needle and punctured the right internal jugular vein. Micropuncture wire was inserted. Micropuncture sheath was inserted. A 0.035 floppy guidewire was inserted. This was all done under fluoroscopy. We then went onto the chest and 15 mL of lidocaine 1% was injected there. We then made a 3-cm incision using a 15-blade. Bovie electrocautery was used to control hemostasis. Using a vein retractor, we were able to create a pocket for our port. We then went ahead and took an 11-blade and made a 1-cm incision at the puncture site. We then tunneled our port up to the puncture site. The port fit nice and snug inside our pouch. We went ahead, under fluoroscopy, and cut the catheter to size. We then went ahead and placed our break-away sheath over the guidewire into the vein. The cannula and guidewire were removed. The catheter was placed inside the sheath. Sheath was broken away as the catheter was placed inside the vein. Using a Hou needle, we fam back on the port and there was good flow. Heparinized saline was injected and 2000 units of IV heparin were injected into the port. Then, 3-0 silk was used and the port was secured to the subcutaneous tissue. We used 3-0 Vicryl and the subcutaneous tissue was approximated in an interrupted manner. We then used 4-0 Biosyn and the skin was closed in a subcuticular running fashion. We also used 4-0 Biosyn and a simple suture was placed at the puncture site. Areas were wet and dried. Dermabond was placed. Steri-Strips were placed. Then, 4 x 4 and Tegaderm were placed. Patient tolerated the procedure with no complication. Patient was transversed to PACU in stable condition, where a chest x-ray will be ordered. ERICK IVORY DO [id number]
== END 2019-04-02 19:10 | disposition home or self-care (01) ==
LOC: JER 11:31 → JERBED 18:26 → J4S 20:51
PROVIDERS: ADMIT Internal Medicine; ATTEND Internal Medicine
PROC: 05HM33Z Insertion of Infusion Device into Right Internal Jugular Vein, Percutaneous Approach (ICD-10-PCS; principal; 2019-03-30)
PROC: B513ZZA Fluoroscopy of Right Jugular Veins, Guidance (ICD-10-PCS; 2019-03-30)
PROC: 3E03329 Introduction of Other Anti-infective into Peripheral Vein, Percutaneous Approach (ICD-10-PCS; 2019-03-30)
PROC: 3E013GC Introduction of Other Therapeutic Substance into Subcutaneous Tissue, Percutaneous Approach (ICD-10-PCS; 2019-03-30)
DX: Z45.2 Encounter for adjustment and management of vascular access device (principal); C86.6 Primary cutaneous CD30-positive T-cell proliferations; F17.210 Nicotine dependence, cigarettes, uncomplicated; R00.1 Bradycardia, unspecified; R01.1 Cardiac murmur, unspecified; R53.1 Weakness; D64.9 Anemia, unspecified; R79.89 Other specified abnormal findings of blood chemistry; L97.219 Non-pressure chronic ulcer of right calf with unspecified severity
CPT/HCPCS: 36561; 77001; 96372; 96374; C1751; 36415; 71045-TC-FY; 76000-TC-FY; 80048; 80053; 80061; 82550; 82553; 83036; 83721; 83735; 84100; 84443; 84484; 85025; 85027; 85610; 86850; 86900; 86901; 93005; 93010; 93306-TC; 93926-TC; 93971-TC; 94760; 99282-25; G0378; J1644; J7030